=== PATIENT | female | born 2000 | race African-American/Black ===

== ENCOUNTER 2024-11-27 16:30 | Emergency (ER) | payer MEDICAID, SELFPAY ==
[2024-11-27 16:46] VITALS: BP 123/84; PULSE 79; RESP 18; TEMP 37; O2SAT 100; BMI 33.9
--- NOTE | 2024-11-27 16:52 | PD.EDRME ---
Rapid Medical Screening Exam RME Arrival date/time: 11/27/24 16:30 24-year-old female currently presents the emergency department complains of nausea vomiting abdominal pain Chief Complaint: Nausea/Vomiting/Diarrhea Time Seen by Provider: 11/27/24 16:35 Vital signs: Vital Signs Temperature 98.6 F 11/27/24 16:46 Pulse Rate 79 11/27/24 16:46 Respiratory Rate 18 11/27/24 16:46 Blood Pressure 123/84 11/27/24 16:46 Pulse Oximetry (%) 100 11/27/24 16:46 Oxygen Delivery Method Room Air 11/27/24 16:46
--- NOTE | 2024-11-27 17:12 | XR_ITS ---
Examination: Complete OB ultrasound greater than 14 weeks Date and time of exam: November 27, 2024 1716 hrs. Indications: Abdominal pain beginning one month ago Findings: Viable intrauterine single fetus with single amniotic sac presentation cephalic Cardiac motion 155 BPM Placenta posterior grade 0 Umbilical cord insertion seen Amniotic fluid index 9.0 cm Cervix 2.7 cm Ovaries obscured by bowel gas. Composite estimated gestational age based on BPD, head circumference, abdominal circumference, femur length is 18 weeks 3 days Estimated weight 231 g. Survey of intracranial anatomy, spinal anatomy, abdominal anatomy, four-chamber heart performed with no abnormalities identified. Impression: Viable intrauterine gestation cephalic presentation.
[2024-11-27 17:20] LABS: Basophils % (Auto) 0 % (0-2.5); Eosinophils % (Auto) 0 % (0-10); Hematocrit 33.1 % (36.0-46.0); Immature Granulocytes % (Auto) 0 % (0-0); Immature Granulocytes Auto 0.04 Thou/mm3 (0.00-0.00); Lymphocytes # (Auto) 2.4 Thou/mm3 (1.0-4.8); Lymphocytes % (Auto) 19 % (10-50); Mean Corpuscular HGB Conc 33.2 g/dl (31.0-37.0); Mean Corpuscular Hemoglobin 31.7 pg (25.0-35.0); Mean Corpuscular Volume 95 fL (80-100); Monocytes # (Auto) 0.5 Thou/mm3 (0.0-0.8); Monocytes % (Auto) 4 % (0-12); Neutrophils # (Auto) 9.7 Thou/mm3 (1.8-7.7); Neutrophils % (Auto) 77 % (37-80); Nucleated Red Blood Cell % 0 /100 WBC (0); Platelet Count 257 Thou/mm3 (140-440); RDW Standard Deviation 42.7 fL (36.4-46.3); Red Blood Count 3.47 Miln/mm3 (4.00-5.20); White Blood Count 12.7 Thou/mm3 (3.6-11.0)
[2024-11-27] MEDS: METOCLOPRAMIDE 5 MG TABLET 10 MG PO (17:52)
[2024-11-27 18:05] LABS: Alanine Aminotransferase 11 U/L (10-49); Albumin, Serum 4.5 gm/dL (3.5-5.0); Albumin/Globulin Ratio 1.4 (1.2-2.2); Alkaline Phosphatase 64 U/L (46-116); Anion Gap 7 (7-16); Aspartate Amino Transferase 16 U/L (0-34); BUN/Creatinine Ratio 8 Ratio (12-20); Bilirubin,Total 0.4 mg/dL (0.3-1.2); Blood Urea Nitrogen < 5 mg/dL (9-23); Calcium 9.2 mg/dL (8.3-10.6); Calcium (Corrected) 9.2 mg/dL (8.5-10.1); Chloride 103 mMol/L (98-107); Creatinine (Component) 0.6 mg/dL (0.6-1.3); Estimated Creatinine Clearance 203.6 mL/min (>60); Globulin 3.2 gm/dL (2.3-3.5); Glucose 82 mg/dL (74-106); Lipase 26 U/L (12-53); Osmolality,Calculated 266 (275-295); Potassium 4.4 mMol/L (3.4-5.1); Sodium 135 mMol/L (136-145); Total Protein 7.7 gm/dL (5.7-8.2); eGFR > 60 See Note
[2024-11-27 18:08] LABS: Collection Type, Urine Clean Catch
[2024-11-27 18:25] LABS: Bacteria,Urine Rare; Bilirubin,Urine Negative (Negative); Blood,Urine Negative (Negative); Clarity,Urine Turbid (Clear/Hazy); Color,Urine Lt-Yellow (Lt Yel-Yel); Culture Indicated,Urine Not Indicated; Glucose, Urine Negative (Negative); Ketones,Urine 1+ (Negative); Leukocyte Esterase,Urine Positive (Negative); Nitrite,Urine Negative (Negative); PH,Urine 6.5 (5.0-7.0); Protein,Urine Negative (Neg - Trace); RBC,Urine 3 /hpf (0-3); Specific Gravity,Urine 1.012 (1.001-1.035); Squamous Epithelial Cell,Urine 17 /hpf (0-5); Urobilinogen,Urine Negative mg/dL (0.0-1.0); WBC,Urine 2 /hpf (0-5)
[2024-11-27 18:26] LABS: Sperm,Urine Present
[2024-11-27 18:28] LABS: HCG Qualitative,Urine Positive
[2024-11-27 18:34] LABS: Beta HCG,Quantitative 13339 mIU/mL (<5.0)
[2024-11-27 18:40] VITALS: BP 115/64; PULSE 68; RESP 20; TEMP 36.9; O2SAT 100
[2024-11-27 18:57] VITALS: PULSE 68
--- NOTE | 2024-11-27 19:01 | EDNOTE_ITS ---
ED General RME/HPI General Chief complaint: Nausea/Vomiting/Diarrhea Stated complaint: 15 weeks OB,, vomiting, abd pain Time Seen by Provider: 11/27/24 16:35 Arrival date/time: 11/27/24 16:30 CC: Nausea vomiting while HPI nausea problems been 1 for the last couple weeks. The patient states she is been able to hold food down but has been persistent nauseated patient states she vomits at least 2-3 times a day. Patient denies fever chills painful urination bloody urination bloody vaginal discharge or other vaginal discharge. Patient is awake alert oriented she is a G4, P1 at estimated 16 weeks. RME / HPI RME / HPI narrative: 11/27/24 16:30 24-year-old female currently presents the emergency department complains of nausea vomiting abdominal pain Related Data Previous Rx's ?Medication ?Instructions ?Recorded metoclopramide HCl 10 mg tablet 10 mg PO Q6H PRN nausea and 11/27/24 (Reglan) vomiting #20 tabs Allergies Allergy/AdvReac Type Severity Reaction Status Date / Time No Known Allergies Allergy Verified 01/02/23 22:11 Review of Systems Review of Systems Narrative Review of Systems: GEN: No fever, no chills, no weight loss EYES: No discharge, no visual changes, no pain HEENT: No ear pain, no congestion, no sore throat PULM: No shortness of breath, no cough, no congestion CV: No chest pain, no dyspnea on exertion, no palpitations GI: N+ nausea, + vomiting, no diarrhea, no pain, no constipation : No frequency, no urgency, no dysuria MUSC/SKEL: No joint pain, no back pain SKIN: No rash PSYCH: No hallucinations, no depression HEME/LYMPH: No easy bleeding or bruising tendencies NEURO: No weakness, no headache Past Medical History Past Medical History CARDIAC: Negative Congestive Heart Failure RESPIRATORY: Positive Asthma; Negative Chronic Obstructive Pulmonary Disease (COPD) GENITOURINARY: Negative Renal Disease ENDOCRINE: Negative Diabetes Mellitus Type 1 or Diabetes Mellitus Type 2 Family History FAMILY HISTORY: Positive Family Cardiac Disorders and Family Endocrine Disorders; Negative Family Cancer Social History SMOKING STATUS: Never smoker ED Exam Narrative Physical exam: [General: Not in any acute distress Head normocephalic HEENT: Within acceptable limits Neck is supple nontender Chest equal chest rise nontender to palpation Respiratory: Clear to auscultation no wheezes crackles or rubs CV: Rate rhythm is regular no murmurs rubs or clicks Abdomen is soft nontender no masses positive bowel sounds all 4 quadrants Back: No CVA tenderness no spinous process tenderness from cervical spine thoracic and lumbar spine Skin: Intact no petechiae rash induration ulceration or crepitus Extremities: Moving all extremity against resistance cap refill less than 2 seconds neurosensory intact Neuro: Awake alert oriented x3 Glascow coma 15 no focal deficits] Course Quality Measures none Orders Category Date Time Status US OB >= 14 weeks Fetus Stat Exams 11/27/24 17:12 Completed ABO/RH Type Stat Lab 11/27/24 17:07 Results Beta HCG,Quantitative Stat Lab 11/27/24 17:07 Completed CBC Stat Lab 11/27/24 17:07 Completed Comprehensive Metabolic Panel Stat Lab 11/27/24 17:07 Completed HCG Qualitative,Urine Stat Lab 11/27/24 18:01 Completed Lipase Stat Lab 11/27/24 17:07 Completed UA, C/S IF [Urinalysis, C/S if Indicated] Stat Lab 11/27/24 18:01 Completed Metoclopramide [Reglan] Med 11/27/24 16:52 Discontinued 10 mg PO X1 ONE Ondansetron Odt [Zofran Odt] Med 11/27/24 18:58 Discontinued 4 mg PO X1 ONE Vital Signs Vital signs: Vital Signs Temperature 98.6 F 11/27/24 16:46 Pulse Rate 79 11/27/24 16:46 Respiratory Rate 18 11/27/24 16:46 Blood Pressure 123/84 11/27/24 16:46 Pulse Oximetry (%) 100 11/27/24 16:46 Oxygen Delivery Method Room Air 11/27/24 16:46 [facility] Patient data External records reviewed:: [facility] previous records Clinical information provided by:: patient Social determinants that could affect healthcare access:: none Patient has the following chronic illnesses:: How is presenting disease/condition affected by chronic disease/condition?: u neffected by Evaluation data The following diagnostics were reviewed and interpreted by me:: lab results and radiology exam(s) Lab and/or radiology exams considered but not ordered:: Ultrasound interpreted by me read by radiology shows a gestation at 18 weeks 3 days, heart rate of 155 single IUP CBC shows no acute leukocytosis anemia thrombocytopenia CMP shows no acute electrolyte imbalances renal impairment transaminitis or T. bili elevation Urine is negative for urinary tract infection ABO Zay is positive Interpretation Summary: Nausea vomiting with Medications Medications considered but not ordered:: None Medication administrations:: Medication Administration History Discontinued Medications Metoclopramide HCl (Metoclopramide 5 Mg Tablet) 10 mg PO X1 ONE Stop: 11/27/24 16:53 Last Admin: 11/27/24 17:52 Dose: 10 mg Documented By: OA Ondansetron HCl (Ondansetron Odt 4 Mg Tabrap) 4 mg PO X1 ONE; Protocol Stop: 11/27/24 18:59 None Consultations Consultation(s) initiated? (list below): No Diagnosis Differential Diagnosis ED Complaint MDM: Hyperemesis gravidarum SAB electrolyte imbalance Most likely diagnosis given after review of the tests above:: Nausea during Admission Indicated Admission indicated?: not indicated Explain why admission is indicated or not indicated:: Stable for outpatient Admission Request Was there a request for admission?: No Disposition Plan Disposition Plan: Discharge Discharge Attestation Discharge Attestation: The patient and all family members were given an opportunity to ask questions and understood the discharge instructions. Discharge instructions specifically effects, indications for sooner follow up or return to the emergency department, and the expected course of current diagnosis. Patient condition: Stable Medical Decision Making Differential Diagnosis Differential Diagnosis: Hyperemesis gravidarum SAB electrolyte imbalance Lab Data 11/27/24 17:07 11/27/24 17:07 Labs: Lab Results 11/27/24 11/27/24 Range/Units 17:07 18:01 WBC 12.7 H (3.6-11.0) Thou/mm3 RBC 3.47 L (4.00-5.20) Miln/mm3 Hgb 11.0 L (12.0-16.0) g/dL Hct 33.1 L (36.0-46.0) % MCV 95 (80-100) fL MCH 31.7 (25.0-35.0) pg MCHC 33.2 (31.0-37.0) g/dl RDW Std Deviation 42.7 (36.4-46.3) fL Plt Count 257 (140-440) Thou/mm3 Neut % (Auto) 77 (37-80) % Lymph % (Auto) 19 (10-50) % [place] % (Auto) 4 (0-12) % Eos % (Auto) 0 (0-10) % Baso % (Auto) 0 (0-2.5) % Neut # (Auto) 9.7 H (1.8-7.7) Thou/mm3 Lymph # (Auto) 2.4 (1.0-4.8) Thou/mm3 [place] # (Auto) 0.5 (0.0-0.8) Thou/mm3 Eos # (Auto) 0.0 (0.0-0.5) Thou/mm3 Baso # (Auto) 0.0 (0.0-0.2) Thou/mm3 Immature Gran # (Auto) 0.04 H (0.00-0.00) Thou/mm3 Absolute Nucleated RBC 0.00 (0.00-0.00) Thou/mm3 Immature Gran % 0 (0-0) % Nucleated RBC % 0 (0) /100 WBC Sodium 135 L (136-145) mMol/L Potassium 4.4 (3.4-5.1) mMol/L Chloride 103 (98-107) mMol/L Carbon Dioxide 25.0 (20.0-31.0) mMol/L Anion Gap 7 (7-16) BUN < 5 L (9-23) mg/dL Creatinine 0.6 (0.6-1.3) mg/dL Estim Creat Clear Calc 203.6 (>60) mL/min eGFR > 60 (60 - ) See Note BUN/Creatinine Ratio 8 L (12-20) Ratio Glucose 82 (74-106) mg/dL Calculated Osmolality 266 L (275-295) Calcium 9.2 (8.3-10.6) mg/dL Corrected Calcium 9.2 (8.5-10.1) mg/dL Total Bilirubin 0.4 (0.3-1.2) mg/dL AST 16 (0-34) U/L ALT 11 (10-49) U/L Alkaline Phosphatase 64 (46-116) U/L Total Protein 7.7 (5.7-8.2) gm/dL Albumin 4.5 (3.5-5.0) gm/dL Globulin 3.2 (2.3-3.5) gm/dL Albumin/Globulin Ratio 1.4 (1.2-2.2) Lipase 26 (12-53) U/L Beta HCG, Quant 10914 (<5.0) mIU/mL Ur Collection Type Clean Catch Urine Color Lt-Yellow (Lt Yel-Yel) Urine Clarity Turbid A (Clear/Hazy) Urine pH 6.5 (5.0-7.0) Ur Specific [place] 1.012 (1.001-1.035) Urine Protein Negative (Neg - Trace) Urine Glucose (UA) Negative (Negative) Urine Ketones 1+ A (Negative) Urine Blood Negative (Negative) Urine Nitrite Negative (Negative) Urine Bilirubin Negative (Negative) Urine Urobilinogen (Auto) Negative (0.0-1.0) mg/dL Ur Leukocyte Esterase Positive (Negative) Urine RBC 3 (0-3) /hpf Urine WBC 2 (0-5) /hpf Ur Squamous Epith Cells 17 H (0-5) /hpf Urine Bacteria Rare (None) Urine Sperm Present A (None) Ur Culture Indicated? Not Indicated Urine HCG, Qual Positive Blood Bank Wristband ID Yes Discharge Plan Plan Patient Disposition: HOME (Self Care) Patient condition on transfer: Stable Prescriptions/Referrals Prescriptions/Med Rec: New metoclopramide HCl [Reglan] 10 mg tablet 10 mg PO Q6H PRN (Reason: nausea and vomiting) Qty: 20 0RF Referrals: Doroteo Olsen MD [Primary Care Provider] - In 1 week Problem List Clinical Impression: , Nausea & vomiting Patient/Caregiver Discharge Instructions Education Materials: ED Vomiting and Diarrhea ... Additional Instructions: Take medications as prescribed for nausea, follow-up with your GEOTHERMAL OPERATIONS ENGINEER on November 29, 2024. If there is a worsening of symptoms including vaginal bleeding or vaginal discharge. Print Language: Georgian Stand Alone Forms: Coleen Award Info., Patient Portal Info Letter, Work/School Release PA/CHANGE MANAGEMENT EXPERT Supervising Physician PA/CHANGE MANAGEMENT EXPERT Supervising Physician: Haroldo Rubi ENP
[2024-11-27] MEDS: ONDANSETRON ODT 4 MG TABRAP PO (19:08)
[2024-11-27 19:15] VITALS: BP 117/64; PULSE 73; RESP 19; O2SAT 100
== END 2024-11-27 19:17 | disposition home or self-care (01) ==
PROVIDERS: Nurse Practitioner Primary Care; Emergency Provider Emergency Medicine; PCP Family Medicine; Referring Provider Emergency Medicine
DX: O21.9 Vomiting of pregnancy, unspecified (principal); Z3A.18 18 weeks gestation of pregnancy
CPT/HCPCS: 36415; 76805; 80053; 81001; 81025; 83690; 84702; 85025; 86900; 86901; 99284; Q0162; A9270

== ENCOUNTER 2025-01-09 13:23 | Emergency (ER) | payer MEDICAID, SELFPAY ==
[2025-01-09 13:56] VITALS: BP 114/74; PULSE 82; RESP 18; TEMP 36.9; O2SAT 98; BMI 33.0
--- NOTE | 2025-01-09 14:06 | EDNOTE_ITS ---
<Statement entered by Bing Liang MD - 01/10/25 07:26> As co-signing physician, I was present and available for consult prn. I concur with the plan and care as documented by the midlevel provider. Upper Respiratory Inf. RME/HPI General Chief Complaint: Flu Like Symptoms Stated Complaint: FEVER, COUGH, CONGESTION, SOB Time Seen by Provider: 01/09/25 14:04 Source: patient Arrival date/time: 01/09/25 13:23 24-year-old female with no known medical history presents to the emergency room with a chief complaint of a fever, cough, congestion, shortness of breath x 2 days Mode of arrival: ambulatory Limitations: no limitations Related Data Previous Rx's ?Medication ?Instructions ?Recorded metoclopramide HCl 10 mg tablet 10 mg PO Q6H PRN nause a and 11/27/24 (Reglan) vomiting #20 tabs Allergies Allergy/AdvReac Type Severity Reaction Status Date / Time No Known Allergies Allergy Verified 01/02/23 22:11 Review of Systems Review of Systems Systems Reviewed: All systems reviewed, normal except as documented Constitutional Constitutional: Reports system reviewed and no additional complaints, except as documented, Reports body ache(s), Denies fatigue, Reports fever(s), Denies headache(s) and Denies weakness Eyes Eyes: Reports system reviewed and no additional complaints, except as documented, Denies blurry vision and Denies change in vision ENT Ears, Nose, Mouth, and Throat: Reports system reviewed and no additional complaints, except as documented, Denies otalgia, Denies headache(s), Reports nasal congestion, Reports sore throat, Denies throat swelling and Denies vertigo Cardiovascular Cardiovascular: Reports system reviewed and no additional complaints, except as documented, Denies chest pain, Denies dyspnea and Denies dyspnea on exertion Respiratory Respiratory: Reports system reviewed and no additional complaints, except as documented, Denies chest congestion, Reports cough, Denies dyspnea, Denies dyspnea on exertion and Denies wheezing Gastrointestinal Gastrointestinal: Reports system reviewed and no additional complaints, except as documented, Denies abdominal pain, Denies cramping, Denies nausea and Denies vomiting Genitourinary Genitourinary: Reports system reviewed and no additional complaints, except as documented Musculoskeletal Musculoskeletal: Reports system reviewed and no additional complaints, except as documented and Denies back pain Integumentary/Breasts Skin/Breast: Reports system reviewed and no additional complaints, except as documented and Denies wounds Neurologic Neurologic: Reports system reviewed and no additional complaints, except as documented, Denies confusion, Denies headache(s), Denies lack of coordination, Denies vertigo and Denies weakness Psychiatric Psychiatric: Reports system reviewed and no additional complaints, except as documented, Denies anxiety, Denies confusion, Denies depression, Denies paranoia, Denies suicidal ideation and Denies tactile hallucinations Endocrine Endocrine: Reports system reviewed and no additional complaints, except as documented and Denies fatigue Hematologic/Lymphatic Hematologic/Lymphatic: Reports system reviewed and no additional complaints, except as documented and Denies lymphadenopathy Allergic/Immunologic Allergic/Immunologic: Reports system reviewed and no additional complaints, except as documented, Denies throat swelling, Denies urticaria and Denies wheezing ED Exam General Limitations: Present no limitations General appearance: Present alert and in no apparent distress Head Head exam: Present atraumatic Eye Eye exam: Present normal appearance, PERRL and EOMI ENT ENT exam: Present normal exam, normal oropharynx and mucous membranes moist Expanded ENT Exam Throat exam: Present tonsillar erythema; Absent tonsillomegaly, tonsillar exudate, R peritonsillar mass, L peritonsillar mass or muffled voice Neck Neck exam: Present normal inspection, full ROM and trachea midline Chest Chest inspection: Present normal inspection and symmetric chest wall rise Respiratory Respiratory exam: Present normal lung sounds bilaterally; Absent respiratory distress, wheezes, stridor, accessory muscle use or prolonged expiratory phase Cardiovascular Cardiovascular exam: Present regular rate, normal rhythm and normal heart sounds Abdominal Exam Abdominal exam: Present soft and normal bowel sounds Extremities Exam Extremities exam: Present normal inspection and full ROM Back Exam Back exam: Present normal inspection and full ROM Neurological Exam Neurological exam: Present alert, oriented X3 and CN II-XII intact Psychiatric Psychiatric exam: Present normal affect and normal mood Skin Skin exam: Present warm, dry, intact and normal color Course Quality Measures none Orders Category Date Time Status Bedside COVID-19 Antigen Test NOW Care 01/09/25 14:02 Completed Bedside Influenza A&B Antigen Test NOW Care 01/09/25 14:02 Completed Vital Signs Vital signs: Vital Signs Temperature 98.5 F 01/09/25 13:56 Pulse Rate 82 01/09/25 13:56 Respiratory Rate 18 01/09/25 13:56 Blood Pressure 114/74 01/09/25 13:56 Pulse Oximetry (%) 98 01/09/25 13:56 Oxygen Delivery Method Room Air 01/09/25 13:56 O2 saturation 98% within normal limits Upper Respiratory Infection MDM Narrative MDM Narrative:: 24-year-old female with no known medical history presents to the emergency room with a chief complaint of a fever, cough, congestion, shortness of breath x 2 days. Patient is currently 24 weeks . Patient is hemodynamically stable and in no apparent distress At this time the patient does not have any OB complaints. She denies any vaginal bleeding pelvic pain or any discomfort related to her . Lung sounds are clear bilateral with no wheezing or stridor Influenza and COVID-19 test were negative Patient was discharged and educated to follow-up with her primary care provider and return to the emergency room for any evidence of worsening signs or symptoms. Patient data External records reviewed:: [facility] previous records Clinical information provided by:: patient Social determinants that could affect healthcare access:: none Patient has the following chronic illnesses:: No chronic illness How is presenting disease/condition affected by chronic disease/condition?: no chronic disease Evaluation data The following diagnostics were reviewed and interpreted by me:: lab results and radiology exam(s) Lab and/or radiology exams considered but not ordered:: Labs and radiology exams considered in order Interpretation Summary: N/A Medications / Prescriptions Medications or Prescriptions considered but not ordered:: N/A Medication administrations:: No medication given Consultations Consultation(s) initiated? (list below): No Diagnosis Upper Respiratory Differential Diagnosis: upper respiratory infection, sinusitis, viral infection, bronchitis, influenza, pharyngitis and other Most likely diagnosis given after review of the tests above:: Upper respiratory infection Admission Indicated Admission indicated?: not indicated Admission Request Was there a request for admission?: No Disposition Plan Disposition Plan: Discharge Discharge Attestation Discharge Attestation: The patient and all family members were given an opportunity to ask questions and understood the discharge instructions. Discharge instructions specifically effects, indications for sooner follow up or return to the emergency department, and the expected course of current diagnosis. Patient condition: Stable Discharge Plan Plan Patient Disposition: HOME (Self Care) Disposition Comment: Stable Prescriptions/Referrals Prescriptions/Med Rec: No Action metoclopramide HCl [Reglan] 10 mg tablet 10 mg PO Q6H PRN (Reason: nausea and vomiting) Qty: 20 0RF Problem List Clinical Impression: Upper respiratory infection Patient/Caregiver Discharge Instructions Education Materials: ED URI, Viral, No Abx (Adult) Additional Instructions: Please follow-up with your primary care provider in the next 24 to 48 hours. COVID-19 and influenza test were completed and were negative At this time we are unable to do a chest x-ray due to your . For any evidence of worsening signs or symptoms please return to the emergency room immediately Print Language: Chadian Stand Alone Forms: Coleen Award Info., Patient Portal Info Letter PA/RETAIL ADMINISTRATIVE ASSISTANT Supervising Physician PA/RETAIL ADMINISTRATIVE ASSISTANT Supervising Physician: Dr. LIANG
== END 2025-01-09 16:19 | disposition home or self-care (01) ==
LOC: SERX 15:48
PROVIDERS: Emergency Provider Emergency Medicine; PCP Family Medicine
DX: J06.9 Acute upper respiratory infection, unspecified (principal)
CPT/HCPCS: 87400; 87811; 99283

== ENCOUNTER 2025-03-01 14:59 | Observation (INO) | payer MEDICAID, SELFPAY ==
[2025-03-01 15:23] VITALS: BP 116/66; PULSE 73
[2025-03-01 15:24] VITALS: BP 116/66; PULSE 73; RESP 18; RESP 99; TEMP 36.8
[2025-03-01 16:03] LABS: ROM Kit Lot # 57807112; ROM Swab Mixed By: NW; Swb Mxed in Solvent 1 min? Yes
[2025-03-01 16:04] LABS: Rupture of Fetal Membranes Negative (Negative)
--- NOTE | 2025-03-01 16:04 | XR_ITS ---
Examination: Biophysical profile, ultrasound Date and time of exam: March 01, 2025, 1628 hours INDICATIONS: Vaginal bleeding beginning 2 hours ago Technique: Multiple transabdominal sonographic images of the pelvis abdomen obtained. Attention is directed to the breathing movement, gross body movement, amniotic fluid volume and tone. Findings: Amniotic fluid index 18.4 cm Total biophysical profile is 8 of 8. breathing movement is 2. Gross body movement is 2. tone is 2. Qualitative amniotic fluid volume is 2 Impression: Biophysical profile is 8 of 8.
--- NOTE | 2025-03-01 16:14 | XR_ITS ---
Examination: OB Transvaginal ultrasound of the pelvis, complete Technique: Transvaginal sonographic images pelvis performed using newman scale imaging Exam date and time: March 01, 2025, 1635 hours INDICATIONS: Vaginal bleeding beginning 2 hours ago FINDINGS: Cervix 3.8 cm closed. IMPRESSION: Cervix 3.8 cm closed
[2025-03-01 16:22] VITALS: BMI 32.6
--- NOTE | 2025-03-01 17:22 | XR_ITS ---
Examination: Complete OB ultrasound greater than 14 weeks Date and time of exam: March 01, 2025 1855 hours INDICATIONS: Vaginal bleeding and pelvic cramping beginning 4 hours ago Findings: Viable intrauterine single fetus with single amniotic sac presentation cephalic Cardiac motion 158 BPM Placenta fundal grade 2 The umbilical cord insertion seen Amniotic fluid index 12.5 cm spine anterior Cervix 3.5 cm closed Ovaries are obscured by bowel gas. Composite estimated gestational age based on BPD, head circumference, abdominal circumference, femur length is 31 weeks 1 day Estimated weight 1674 g. Survey of intracranial anatomy, spinal anatomy, abdominal anatomy, four-chamber heart performed with no abnormalities identified. Impression: Viable intrauterine gestation cephalic presentation.
== END 2025-03-01 20:30 | disposition home or self-care (01) ==
PROVIDERS: Admitting Provider Student in an Organized Health Care Education/Training Program; Visit Provider Student in an Organized Health Care Education/Training Program
DX: O46.93 Antepartum hemorrhage, unspecified, third trimester (principal); Z3A.32 32 weeks gestation of pregnancy
CPT/HCPCS: 59025; 59899; 76805; 76817; 76819; 84112

== ENCOUNTER 2025-04-25 01:39 | Inpatient (IN) | payer MEDICAID, SELFPAY ==
[2025-04-25] VITALS (127 sets, daily range): BP systolic 102–228; BP diastolic 55–140; PULSE 54–112; RESP 16–100; TEMP 36.7–37.2; O2SAT 80–100; BMI 32.8; BMI 33.0
--- NOTE | 2025-04-25 02:26 | XR_ITS ---
Examination: Biophysical profile, ultrasound Date and time of exam: April 25, 2025, 0241 hours INDICATIONS: Labor evaluation, pelvic contractions today Technique: Multiple transabdominal sonographic images of the pelvis abdomen obtained. Attention is directed to the breathing movement, gross body movement, amniotic fluid volume and tone. Findings: Amniotic fluid index 9.0 cm Total biophysical profile is 8 of 8. breathing movement is 2. Gross body movement is 2. tone is 2. Qualitative amniotic fluid volume is 2 Impression: Biophysical profile is 8 of 8.
--- NOTE | 2025-04-25 02:27 | XR_ITS ---
Examination: Complete OB ultrasound greater than 14 weeks Date and time of exam: April 25, 2025 at 0249 hours INDICATIONS: Labor evaluation today pelvic contractions, unknown size and dates Findings: Viable intrauterine single fetus with single amniotic sac presentation cephalic Cardiac motion 143 BPM Placenta fundal grade 2 Umbilical cord insertion seen Amniotic fluid index 11.1 cm Cervix 4.0 cm Ovaries obscured by the gestation. Composite estimated gestational age based on BPD, head circumference, abdominal circumference, femur length is 38 weeks 2 days Estimated weight 3562.8 g. Survey of intracranial anatomy, spinal anatomy, abdominal anatomy, four-chamber heart performed with no abnormalities identified. Impression: Viable intrauterine gestation cephalic presentation Estimated gestational age 38 weeks 2 days Estimated weight 3562.8 g.
--- NOTE | 2025-04-25 04:35 | PRELIM_ITS ---
Obstetric ultrasound (limited). April 25, 2025 0241 hours Clinical history: wellbeing Comparison: No prior study is available for comparison. Findings: There is a gravid uterus with a live fetus. cardiac activity is present at a heart rate of 152 beats per minute. Amniotic fluid is adequate (MEME = 9.0 cm). Biophysical Profile: ?? Breathin ?? Tone: 2 ?? Amniotic fluid: 2 ?? Movement: 2 ?? BPP Score: 8/8 Impression: Gravid uterus with a single live fetus Normal biophysical profile as recorded by the certified hyperbaric technologist. Report Electronically Signed By: Derrell Harris 04/25/2025 4:34:18 AM [EST]
--- NOTE | 2025-04-25 04:48 | PRELIM_ITS ---
Obstetric ultrasound. April 25, 2025 at 0249 hours Clinical history: MEME, EFW, presentation Comparison: No prior study is available for comparison. Findings: There is a gravid uterus with a live fetus in cephalic presentation of mean gestational age 38 weeks and 2 days (by biometry). cardiac activity is present at a heart rate of 143 beats per minute. The placenta is fundal in location, maturity grade 2. There is no evidence of placenta previa or retroplacental hemorrhage. Amniotic fluid is adequate (MEME = 11.1 cm). Estimated weight is 3562.8 grams ?? 527 grams. Estimated due date by ultrasound is . The cervical length measures 4 cm. Impression: Gravid uterus with a single live fetus in cephalic presentation of mean gestational age 38 weeks 2 days. Amniotic fluid is adequate (MEME = 11.1 cm). Estimated weight is 3562.8 grams ?? 527 grams. Report Electronically Signed By: Derrell Harris 04/25/2025 4:48:20 AM [EST]
[2025-04-25 05:16] LABS: Hepatitis B Surface Antigen Non Reactive (Non React); Rubella, IgG Antibody Reactive (Immune)
[2025-04-25 05:38] LABS: Syphilis Nonreactive (Nonreactive)
[2025-04-25 07:21] LABS: Basophils % (Auto) 0 % (0-2.5); Eosinophils % (Auto) 0 % (0-10); Hematocrit 31.6 % (36.0-46.0); Hemoglobin 10.8 g/dL (12.0-16.0); Immature Granulocytes % (Auto) 0 % (0-0); Immature Granulocytes Auto 0.02 Thou/mm3 (0.00-0.00); Lymphocytes # (Auto) 2.4 Thou/mm3 (1.0-4.8); Lymphocytes % (Auto) 22 % (10-50); Mean Corpuscular HGB Conc 34.2 g/dl (31.0-37.0); Mean Corpuscular Hemoglobin 31.3 pg (25.0-35.0); Mean Corpuscular Volume 92 fL (80-100); Monocytes # (Auto) 0.7 Thou/mm3 (0.0-0.8); Monocytes % (Auto) 6 % (0-12); Neutrophils # (Auto) 7.6 Thou/mm3 (1.8-7.7); Neutrophils % (Auto) 71 % (37-80); Nucleated Red Blood Cell % 0 /100 WBC (0); Platelet Count 256 Thou/mm3 (140-440); RDW Standard Deviation 43.2 fL (36.4-46.3); Red Blood Count 3.45 Miln/mm3 (4.00-5.20); White Blood Count 10.8 Thou/mm3 (3.6-11.0)
[2025-04-25] MEDS: RINGERS LACTATED 1000 ML 1,000 ML 100 ML IV (07:34)
[2025-04-25] MEDS: Ampicillin Inj 2,000 MG in SODIUM CHLORIDE 0.9% (POP) 100 ML 200 MG IV (07:38)
[2025-04-25] MEDS: RINGERS LACTATED 1000 ML 1,000 ML 999 ML IV (08:03)
[2025-04-25 09:02] LABS: HIV (1&2) Antibody Rapid Non-Reactive
[2025-04-25] MEDS: OXYTOCIN INJ 10 UNIT/ML VIAL IM (10:47)
[2025-04-25] MEDS: TRANEXAMIC ACID 1,000 MG IVPB 1,000 MG/100 ML BAG 200 MG IV (10:50)
[2025-04-25] MEDS: MISOPROSTOL 200 mCg TABLET 800 MCG PR (10:55)
[2025-04-25 10:56] LABS: Amphetamine/Metham Scrn,Ur OB Negative (Negative); Benzoylecgonine Screen, Ur OB Negative (Negative); Opiate Screen,Urine OB Negative (Negative); THC Screen,Urine OB Positive (Negative)
[2025-04-25 10:58] LABS: THC U Confirm* See Sep Rpt
[2025-04-25] MEDS: OXYTOCIN in NS 20 units 20 UNIT/1,000 ML BAG 125 UNIT IV (11:20)
[2025-04-25 11:55] LABS: Chlamydia trachomatis PCR Negative (Not Detect); Neisseria Gonorrhoeae DNA PCR Negative (Not Detect); Trichomonas Negative (Negative)
--- NOTE | 2025-04-25 12:35 | PD.LDHP ---
Documentation for date of: 04/25/25 OB Labor/Induct. HPI History of Present Illness Chief complaint: labor : 4 Para: 1 Term pregnancies: 1 pregnancies: 0 Living children: 1 History of Abortions: Spontaneous and Elective: 3 History of Vaginal deliveries: 1 History of sections: No History of : No Date of last menstrual period: 07/21/24 VIGNESH: 04/27/25 Gestational Age (weeks): 39 Gestational Age (days): 5 Gestational age based on last menstrual period: 39 History of present illness: This is a 24-year-old 4 para 1 admit to labor and delivery with complaints of contractions since midnight. Patient has been seen at [facility] care. First visit she states was at 8 weeks. But noncompliant with care. Last menstrual period July 21, 2025. This gives due date April 27, 2025. Patient denies any existence of chronic illness. Denies social habits. Denies surgeries. She has had no problems with the . Blood type B+, antibody screen negative, RPR nonreactive, rubella immune, hepatitis B negative, hep C negative, HIV negative, RPR was negative. And GBS unknown. GC and Chlamydia were negative. There is normal 1 hour GTT History of Present Dating criteria: LMP confirmed by 1st trimester US Adequate Care: No Ultrasounds: normal 1st trimester US and normal mid trimester US Obstetrical complications: none Medical complications: none Labs Labs: Negative: RPR, Hepatitis B, Rubella Titre, Chlamydia and Gonorrhea and Unknown: HIV, Herpes Type 1, Herpes Type 2, Group Beta Strep and Covid-19 Review of Systems Review of Systems Systems Reviewed: All systems reviewed, normal except as documented Past Medical History Surgical History SURGICAL: Negative Section Meds Home Medications and Allergies Home Medications ?Medication ?Instructions ?Recorded ?Confirmed ?Type vits no.130-ferrous fum 1 tab PO QDAY 03/01/25 03/01/25 History 27 mg iron-folic acid 800 mcg tablet ( Vitamin) Allergies Allergy/AdvReac Type Severity Reaction Status Date / Time No Known Allergies Allergy Verified 04/25/25 03:29 OB Exam Physical Exam Vital signs: Temp Pulse Resp BP Pulse Ox 98.0 F 71 18 108/61 98 04/25/25 01:46 04/25/25 12:25 04/25/25 01:46 04/25/25 12:25 04/25/25 12:34 Narrative: Alert and oriented. Normal heart rate and rhythm. Lungs clear no wheezes. Gravid abdomen. Gynecoid pelvis. Estimated weight 7-1/2 pounds. Vaginal exam on admission was 3-4, 80%, -3. Vertex. Bag water intact. And heart rate was category 1 with regular contractions. Routine Cardiovascular Exam Cardiovascular: Present RRR Routine Abdominal Exam Abdominal: Present soft Detailed Labor and Delivery Exam Dilation (cm): 3-4 Effacement (%): 80 Cervix position: mid station: -3 Consistency: soft Presentation: Vertex Cervical ripeness score: 8 Membranes: intact Baseline heart rate: 135 monitor accelerations: 15x15 monitor decelerations: None long term care phlebotomist variability: Moderate (11-25) Contraction frequency (min): 4-5 Contraction duration (sec): 40 Tachysystole: No Contraction intensity: Moderate OB Results Labs 04/25/25 04:25 Labs: Short CBC 04/25/25 Range/Units 04:25 WBC 10.8 (3.6-11.0) Thou/mm3 Hgb 10.8 L (12.0-16.0) g/dL Hct 31.6 L (36.0-46.0) % Plt Count 256 (140-440) Thou/mm3 OB Assessment & Plan Additional Plan Induction method: AROM Plan: anticipate NVD, GBS prophylaxis tx and consult MD vidales
--- NOTE | 2025-04-25 12:42 | PD.LDDELS ---
Data (Emanuel) Data Hx Section: No : 4 Term: 1 : 0 Livin Abortions: Spontaneous & Theraputic: 3 Delivery Data (Emanuel) Labor Data Initiation of labor: Spontaneous Induction/Augmentation Agent: None ROM date: 04/25/25 ROM time: 10:42 Amniotic membrane rupture type: Artificial Amniotic fluid description: Clear Delivery Data EDC: 04/27/25 EDC calculated by:: LMP/early US confirmation Date of arrival to unit: 04/25/25 Time of arrival to unit: 01:39 Onset of labor date: 04/25/25 Onset of labor time: 00:30 Complete dilation date: 04/25/25 Complete dilation time: 10:40 delivery date: 04/25/25 delivery time: 10:44 Gestational age (weeks): 39 Gestational age (days): 5 Placenta delivery date: 04/25/25 Placenta delivery time: 10:54 Stage 1 total time: Labor - Stage 1 Duration 10 hours and 10 minutes Delivered by: Leonila Maria Delivery nurse: Patricia Whitaker nurse: Haylie Sawant RN Network Specialist at delivery: No Support person(s) at delivery: Geovanna Xiao Other staff at delivery: ave Diaz RN Ashley Barillas RN Delivery Method Delivery method: Normal Vaginal Delivery Presentation: Vertex position: OA Anesthesia Type Anesthesia Type: Epidural Delivery Room Medications Delivery room medications: Pitocin 10 u IM, Pitocin 20 u IV and Cytotec 800 OK (TXA) Placenta Placenta delivery description: Spontaneous Cord blood sent to lab: No cord blood collection: Cord Blood Type Episiotomy Episiotomy description: None Lacerations #1: Periurethral: mid/small Perineal repair Sutures used for repair: 3.0 Vicryl EBL Estimated blood loss (ml): 400 Umbilical Cord cord description: 3 Vessels Data (Emanuel) Data order: 1 Murdock's gender: Male Identification band number: [id number] weight (gms): 3485 g Weight (pounds): 7 lbs and 10.9 ozs Murdock length: 52 m 1 minute: 8 5 minutes: 9
[2025-04-25 20:34] LABS: Basophils % (Auto) 0 % (0-2.5); Eosinophils % (Auto) 0 % (0-10); Hematocrit 30.3 % (36.0-46.0); Hemoglobin 10.6 g/dL (12.0-16.0); Immature Granulocytes % (Auto) 0 % (0-0); Immature Granulocytes Auto 0.03 Thou/mm3 (0.00-0.00); Lymphocytes % (Auto) 14 % (10-50); Mean Corpuscular Hemoglobin 31.2 pg (25.0-35.0); Mean Corpuscular Volume 89 fL (80-100); Monocytes # (Auto) 0.8 Thou/mm3 (0.0-0.8); Monocytes % (Auto) 5 % (0-12); Neutrophils # (Auto) 11.8 Thou/mm3 (1.8-7.7); Neutrophils % (Auto) 80 % (37-80); Nucleated Red Blood Cell % 0 /100 WBC (0); Platelet Count 224 Thou/mm3 (140-440); RDW Standard Deviation 42.3 fL (36.4-46.3); White Blood Count 14.8 Thou/mm3 (3.6-11.0)
[2025-04-26] VITALS: BP 114/76; PULSE 62; RESP 18; TEMP 36.9
[2025-04-26] MEDS: IBUPROFEN TAB 400 MG TABLET 800 MG PO (04:44)
[2025-04-26 04:57] VITALS: BP 110/70; PULSE 62; RESP 18; TEMP 36.9; O2SAT 100
--- NOTE | 2025-04-26 07:44 | PD.LDPPPRG ---
Subjective Subjective Interval history: No complaints of pain. No dizziness. Bonding and breast-feeding Exam Vital Signs Temp Pulse Resp BP Pulse Ox O2 Del Method 98.5 F 62 18 110/70 100 Room Air 04/26/25 04:57 04/26/25 04:57 04/26/25 04:57 04/26/25 04:57 04/26/25 04:57 04/26/25 04:57 Narrative Exam Vital signs stable afebrile. Pressure soft. Fundus firm below the umbilicus. Perineum intact no swelling. Small lochia. Uterus well involuted. Negative Homans' sign. 2+ DTRs Objective Labs 04/25/25 20:27 Labs: Laboratory Results - last 24 hr 04/25/25 04/25/25 04/25/25 04:25 04:50 09:52 WBC RBC Hgb Hct MCV MCH MCHC RDW Std Deviation Plt Count Neut % (Auto) Lymph % (Auto) Millard % (Auto) Eos % (Auto) Baso % (Auto) Neut # (Auto) Lymph # (Auto) Millard # (Auto) Eos # (Auto) Baso # (Auto) Immature Gran # (Auto) Absolute Nucleated RBC Immature Gran % Nucleated RBC % Urine Opiates Screen Negative U Amphetamin/Meth Scrn Negative U Cocaine Metab Screen Negative U Marijuana (THC) Screen Positive A Chlam trachomat DNA PCR Negative HIV 1&2 Antibody Rapid Non-Reactive N.gonorrhoeae DNA (PCR) Negative Trichomonas DNA Probe Negative Blood Type B Positive Antibody Screen NEGATIVE Blood Bank Wristband ID Yes 04/25/25 20:27 WBC 14.8 H RBC 3.40 L Hgb 10.6 L Hct 30.3 L MCV 89 MCH 31.2 MCHC 35.0 RDW Std Deviation 42.3 Plt Count 224 D Neut % (Auto) 80 Lymph % (Auto) 14 Millard % (Auto) 5 Eos % (Auto) 0 Baso % (Auto) 0 Neut # (Auto) 11.8 H Lymph # (Auto) 2.0 Millard # (Auto) 0.8 Eos # (Auto) 0.0 Baso # (Auto) 0.0 Immature Gran # (Auto) 0.03 H Absolute Nucleated RBC 0.00 Immature Gran % 0 Nucleated RBC % 0 Urine Opiates Screen U Amphetamin/Meth Scrn U Cocaine Metab Screen U Marijuana (THC) Screen Chlam trachomat DNA PCR HIV 1&2 Antibody Rapid N.gonorrhoeae DNA (PCR) Trichomonas DNA Probe Blood Type Antibody Screen Blood Bank Wristband ID Assessment & Plan Assessment Comment Assessment comment: 24 hr pp Plan Comment Plan Comment: Discharge home with baby. Continue vitamins and iron. Tylenol ibuprofen for pain. Discussed danger signs and symptoms and ER precautions with parameters. Discussed signs and symptoms of infection. Comfort measures for small periurethral tear. Increase fluids. Return in 3 weeks for visit Time Spent With Patient Time: Total time spent is greater than 50% in coordination of care (as documented) at patient's floor/unit and/or counseling patient:
--- NOTE | 2025-04-26 07:45 | PD.LDDS ---
DS: Providers Provider Date of admission: 04/25/25 06:58 Primary care physician: Physician No Primary/Family Admitting Provider: Conchita James MD ([facility]) Attending Provider on Admission: Leonila Maria CNM Consults: 04/25/25 14:38 Referral Routine Comment: Attending Provider on DC: Leonila Maria CNM Discharging Provider: Leonila Maria CNM DS: Diagnosis Problem List Completed Was Problem List Reviewed/Reconciled?: Yes Summary/Hosp Course Brief History: This is a 24-year-old 4 para 1 admit to labor and delivery with complaints of contractions since midnight. Patient has been seen at [facility] care. First visit she states was at 8 weeks. But noncompliant with care. Last menstrual period July 21, 2025. This gives due date April 27, 2025. Patient denies any existence of chronic illness. Denies social habits. Denies surgeries. She has had no problems with the . Blood type B+, antibody screen negative, RPR nonreactive, rubella immune, hepatitis B negative, hep C negative, HIV negative, RPR was negative. And GBS unknown. GC and Chlamydia were negative. There is normal 1 hour GTT Peripartum Data Delivery Method: Normal Vaginal Delivery Episiotomy Description: None Laceration Description: yes (small PU) complications: none Time Spent with Patient Time attestation: Total time spent providing and/or coordinating discharge services: Exam Vital Signs Temp Pulse Resp BP Pulse Ox O2 Del Method 98.5 F 62 18 110/70 100 Room Air 04/26/25 04:57 04/26/25 04:57 04/26/25 04:57 04/26/25 04:57 04/26/25 04:57 04/26/25 04:57 Discharge Plan Plan Patient Disposition: HOME (Self Care) Patient condition on transfer: Stable Prescriptions/Referrals Prescriptions/Med Rec: No Action metoclopramide HCl [Reglan] 10 mg tablet 10 mg PO Q6H PRN (Reason: nausea and vomiting) Qty: 20 0RF Vitamin 27 mg iron- 800 mcg tablet 1 tab PO QDAY Referrals: No Primary/Family,Physician [Primary Care Provider] - Patient/Caregiver Discharge Instructions Meds to Beds: No Discharge Activity: resume usual activities Print Language: Slovak Activity Restrictions/Additional Instructions: Discharge home with baby today. Continue vitamins and IV iron. Discussed danger signs and symptoms and signs symptoms of infection. I discussed ER precautions and parameters. Increase fluids. Patient may take Tylenol ibuprofen for discomfort. And return in 3 weeks for visit Stand Alone Forms: Coleen Award Info., Patient Portal Info Letter Discharge Order Discharge Orders: Discharge (Routine); Ordered 04/26/25 Ordered By: Leonila Maria Planned Discharge Date 04/26/25
[2025-04-26 08:00] VITALS: BP 114/77; PULSE 60; RESP 18; TEMP 36.8; O2SAT 100
--- NOTE | 2025-04-26 10:20 | PC.ADMIT ---
Patient is a 24-year-old, female, present to for delivery of baby boy. ASW, Liliana, met with patient [id number] to do initial assessment due mother testing positive for THC. ASW introduced herself, role in the agency, reason for visit, and discussed limits of confidentiality. Patient appeared alert and oriented to self, time, place, and situation. Patient made good eye contact. Patient was cooperative. Patient?s behavior appeared ordinary. No signs of delusions or hallucinations. Patient reports she last used THC before becoming then retracted and reported she last used in November 2024. The patient then reported she used in January of 2025. Per mother, she has not used since and does not plan to use THC upon discharge. Patient reports the father of the baby, Rayray Mcdonald is involved. Patient denied past CWS involvement and domestic violence. ? She reports being independent with all her ADLs, no DME use. Patient reported that she receives WIC, TANF, and SNAP. Patient reports she has all the supplies she needs for her and her significant other/FOB is part of her support system as well as her mother. ASW informed mother that a CWS SCAR would be made due to the positive THC at the time of . ASW filed report with [employer], Royce Whitaker and faxed report to . ASW provided update to ALEXEY Mota.
== END 2025-04-26 13:44 | disposition home or self-care (01) | DRG 560 ==
LOC: S4SX 12:34 → S4NX 15:15
PROVIDERS: Obstetrics & Gynecology; Admitting Provider Obstetrics & Gynecology; Visit Provider Advanced Practice Midwife
DX: O71.82 Other specified trauma to perineum and vulva (principal); Z3A.39 39 weeks gestation of pregnancy; Z37.0 Single live birth; Z91.199 Patient's noncompliance with other medical treatment and regimen due to unspecified reason
CPT/HCPCS: 36415; 59025; 76805; 76819; 80307; 85025; 86703; 86762; 86780; 86850; 86900; 86901; 87081; 87340; 87491; 87591; 87661; J0290; J2590; J2795; J3490; J7120; S0191; A9270